=== PATIENT | male | born 1975 | race Caucasian/White ===

== ENCOUNTER 2020-10-11 05:21 | Emergency (ER) | payer OTHER ==
[~2020-10-11] VITALS: Ht 165.1 cm; Wt 62.6 kg
[~2020-10-11 05:21] MED LIST: GAVISCON; PEPCID AC20 MG PO; PREVACID30 MG PO
== END 2020-10-11 13:22 | disposition home or self-care (01) ==
LOC: ER 05:21
DX: K21.9 Gastro-esophageal reflux disease without esophagitis (principal)

== ENCOUNTER 2020-10-19 09:36 | Outpatient (CLI) | payer OTHER | END 2020-10-19 09:38 | disposition home or self-care (01) | LOC: LAB 09:36 | PROVIDERS: ATTEND Surgery | DX: Z03.818 Encounter for observation for suspected exposure to other biological agents ruled out (principal); I10 Essential (primary) hypertension; R10.84 Generalized abdominal pain ==

== ENCOUNTER 2020-10-25 05:40 | Day surgery (SDC) | payer OTHER ==
[2020-10-25] MEDS ORDERED: MIRALAX17 GM PO (09:55)
[2020-10-25] MEDS ORDERED: TYLENOL ARTHRI650 MG PO (09:55)
[2020-10-25] MEDS ORDERED: ULTRAM50 MG PO (09:55)
== END 2020-10-25 14:50 | disposition home or self-care (01) ==
LOC: CIR.AMB
PROVIDERS: ATTEND Surgery
DX: K42.9 Umbilical hernia without obstruction or gangrene (principal); K80.10 Calculus of gallbladder with chronic cholecystitis without obstruction; Z20.822 Contact with and (suspected) exposure to COVID-19

== ENCOUNTER 2021-05-06 09:44 | Outpatient (CLI) | payer OTHER ==
[~2021-05-06 09:44] MED LIST changes: +MIRALAX17 GM PO; +TYLENOL ARTHRI650 MG PO; +ULTRAM50 MG PO
== END 2021-05-06 09:47 | disposition home or self-care (01) ==
LOC: SONOGRAMA 09:44
PROVIDERS: ATTEND Pathology Anatomic Pathology & Clinical Pathology
DX: D34 Benign neoplasm of thyroid gland (principal); E04.8 Other specified nontoxic goiter